=== PATIENT | female | born 1980 | race Caucasian/White ===

== ENCOUNTER 2017-03-15 14:41 | Emergency (ER) | payer SELFPAY ==
--- NOTE | 2017-03-15 15:50 | ED Physician Documentation ---
PD HPI HEENT - Stated complaint Stated Complaint: TOOTH PX - Chief complaint Chief Complaint: Heent - History obtained from History obtained from: Patient - History of Present Illness Timing - onset: Other (1 day of dental pain from a right maxillary canine, no dentist right now. No fevers. Has taken Motrin with relief.) Review of Systems Constitutional: denies: Fever, Chills Throat: reports: Dental pain / toothache. 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, Other - Present Medications Home Medications: Ambulatory Orders Medication Instructions Recorded Confirmed Methadone 80 mg PO DAILY 09/03/12 09/03/12 Ibuprofen [Motrin] 800 mg PO Q8H PRN #30 tablet 03/15/17 Penicillin V Potassium 500 mg PO QID #40 tablet 03/15/17 - Allergies Allergies/Adverse Reactions: Allergies Allergy/AdvReac Type Severity Reaction Status Date / Time latex Allergy Mild Rash Verified 03/15/17 14:52 Penicillins Allergy Mild irregular Verified 03/15/17 14:52 heart beat - Social History Does the pt smoke?: Yes Smoking Status: Current every day smoker Does the pt drink ETOH?: No Does the pt have substance abuse?: Yes - Immunizations Immunizations are current?: Yes - POLST Patient has POLST: No PD ED PE NORMAL - Vitals Vital signs reviewed: Yes - General General: Alert and oriented X 3, No acute distress - HEENT HEENT: Other (Cavity down to the gumline from right maxillary canine with tenderness but no fluctuance, no abscess, no trismus.) - Neck Neck: Supple, no meningeal sign, No bony TTP - Neuro Neuro: Alert and oriented X 3, Normal speech Results - Vitals Vitals: Vital Signs - 24 hr 03/15/17 14:49 Temperature 36.4 C L Heart Rate 99 Respiratory 17 Rate Blood Pressure 153/95 H O2 Saturation 98 Oxygen O2 Source Room air PD MEDICAL DECISION MAKING - ED course ED course: 36-year-old woman with history of narcotic addiction on methadone presents with dental pain. Also documented allergy to penicillins. We discussed both of these, she does not want any narcotics here. She also wants to try penicillin, we discussed potentially clindamycin but she is paying out of pocket and her allergy was mild. Departure - Departure Disposition: 01 Home, Self Care Clinical Impression: Dental abscess Condition: Good Record reviewed to determine appropriate education?: Yes Instructions: ED Abscess Dental Prescriptions: Ibuprofen [Motrin] 800 mg PO Q8H PRN #30 tablet PRN Reason: PAIN &/OR FEVER Penicillin V Potassium 500 mg PO QID #40 tablet Comments: It is very important that she follow-up with a dentist. When it comes to dental problems like yours, the emergency department can only offer a short- term solution to your long-term problem. A couple of low cost options for dental care include: [facility] in [place], calls [phone] for an appointment Or [facility] in [place], call [phone] for an appointment. Your blood pressure was elevated today on check into the emergency department. This does not mean that you have hypertension, it is a common phenomenon to come to the emergency department and have elevated blood pressure. I recommend that you see your primary care physician within the week to have it rechecked when you are feeling better. Forms: Activity restrictions
[2017-03-15 15:56] VITALS: BP 141/95
== END 2017-03-15 15:57 | disposition home or self-care (01) ==
LOC: ED 14:41
DX: K04.7 Periapical abscess without sinus (principal); R03.0 Elevated blood-pressure reading, without diagnosis of hypertension; B19.20 Unspecified viral hepatitis C without hepatic coma; F17.200 Nicotine dependence, unspecified, uncomplicated; Z88.0 Allergy status to penicillin
CPT/HCPCS: 99283

== ENCOUNTER 2017-07-14 18:26 | Emergency (ER) | payer OTHER ==
[2017-07-14] MEDS ORDERED: predniSONE 20 MG TABLET PO STA (19:05)
[2017-07-14] MEDS ORDERED: IPRATROPIUM/ALBUTEROL 3 ML NEB INH STA (19:05)
[2017-07-14] MEDS ORDERED: KETOROLAC 60 MG/2 ML VIAL IM STA (19:05)
--- NOTE | 2017-07-14 19:07 | ED Physician Documentation ---
PD HPI URI - Stated complaint Stated Complaint: COUGH - Chief complaint Chief Complaint: Resp - History obtained from History obtained from: Patient - History of Present Illness Timing - onset: How many days ago (3) Timing duration: Days (3) Timing details: Gradual onset Pain level max: 6 Pain level now: 5 Associated symptoms: Fever (subjective), Nasal congestion, Rhinorrhea, Dry cough , Chest pain (Patient states that her anterior chest wall hurts when she is coughing and taking a deep breath.), Dyspnea (wheezing). 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 - Present Medications Home Medications: Ambulatory Orders Medication Instructions Recorded Confirmed Methadone 80 mg PO DAILY 09/03/12 09/03/12 Albuterol Sulf [Ventolin Hfa 1 - 2 puffs INH Q4HR PRN #1 inhaler 07/14/17 Inhaler] Benzonatate [Tessalon Perle] 100 - 200 mg PO TID PRN #30 capsule 07/14/17 Meloxicam [Mobic] 15 mg PO DAILY PRN #20 tablet 07/14/17 predniSONE [Prednisone] 40 mg PO DAILY #10 tablet 07/14/17 - Allergies Allergies/Adverse Reactions: Allergies Allergy/AdvReac Type Severity Reaction Status Date / Time latex Allergy Mild Rash Verified 07/14/17 18:30 Penicillins Allergy Mild irregular Verified 07/14/17 18:30 heart beat - Social History Does the pt smoke?: Yes Smoking Status: Current every day smoker Does the pt drink ETOH?: No Does the pt have substance abuse?: Yes - Immunizations Immunizations are current?: Yes - POLST Patient has POLST: No PD ED PE NORMAL - Vitals Vital signs reviewed: Yes - General General: Alert and oriented X 3, No acute distress, Well developed/nourished - HEENT HEENT: PERRL, Ears normal, Moist mucous membranes, Pharynx benign - Neck Neck: Supple, no meningeal sign - Cardiac Cardiac: RRR, Strong equal pulses - Respiratory Respiratory: No respiratory distress, Other (Mild wheezing bilaterally) - Abdomen Abdomen: Soft, Non tender, Non distended - Back Back: No spinal TTP - Derm Derm: Warm and dry - Extremities Extremities: No edema, No calf tenderness / cord - Neuro Neuro: Alert and oriented X 3 - Psych Psych: Normal mood, Normal affect Results - Vitals Vitals: Vital Signs - 24 hr 07/14/17 07/14/17 07/14/17 18:27 19:40 20:12 Temperature 36.9 C 36.4 C L Heart Rate 116 H 106 H 97 Respiratory 20 22 12 Rate Blood Pressure 149/102 H 158/90 H O2 Saturation 97 98 Oxygen O2 Source Room air - Rads (name of study) cxr Radiology: Prelim report reviewed, EMP read contemporaneously, See rad report ( No acute cardiopulmonary abnormality. ) PD MEDICAL DECISION MAKING - ED course Complexity details: reviewed results, re-evaluated patient, considered differential, d/w patient ED course: Patient is a 36-year-old female who presents to the emergency department what appears to be a viral upper respiratory infection. She is well-appearing, nontoxic. Feels better after Toradol. She is on methadone for chronic pain. Will prescribe steroids and inhaler, antitussives and pain medication for home. Patient counseled regarding signs and symptoms for which I believe and urgent re-evaluation would be necessary. Patient with good understanding of and agreement to plan and is comfortable going home at this time This document was made in part using voice recognition software. While efforts are made to proofread this document, sound alike and grammatical errors may occur. No evidence of pneumonia, pulmonary embolus, pneumothorax. Departure - Departure Disposition: 01 Home, Self Care Clinical Impression: Viral URI Condition: Good Instructions: ED Viral Syndrome Follow-Up: your,doctor in 1 week [Other] Prescriptions: Albuterol Sulf [Ventolin Hfa Inhaler] 1 - 2 puffs INH Q4HR PRN #1 inhaler PRN Reason: Shortness Of Air/Wheezing Benzonatate [Tessalon Perle] 100 - 200 mg PO TID PRN #30 capsule PRN Reason: Cough Meloxicam [Mobic] 15 mg PO DAILY PRN #20 tablet PRN Reason: pain predniSONE [Prednisone] 40 mg PO DAILY #10 tablet Comments: Drink plenty of fluids and rest. Return if you worsen. Forms: Activity restrictions Discharge Date/Time: 07/14/17 20:09
--- NOTE | 2017-07-14 19:42 | XRAY Report ---
EXAM: CHEST RADIOGRAPHY EXAM DATE: 07/14/2017 07:21 PM. CLINICAL HISTORY: Cough, fever. COMPARISON: 01/26/2016. TECHNIQUE: 2 views. FINDINGS: Lungs/Pleura: No focal opacities evident. No pleural effusion. No pneumothorax. Normal volumes. Mediastinum: Heart and mediastinal contours are unremarkable. Other: None. IMPRESSION: No acute cardiopulmonary abnormality. [facility] Referring Provider Line: [phone] SITE ID: [id number]
--- NOTE | 2017-07-14 19:42 | XRAY Preliminary Report ---
Exam: XR CHEST 2 VIEW X-RAY IMPRESSION: No acute cardiopulmonary abnormality. [facility] SITE ID: [id number]
[2017-07-14 20:13] VITALS: BP 158/90
== END 2017-07-14 20:09 | disposition home or self-care (01) ==
LOC: ED 18:26
DX: J06.9 Acute upper respiratory infection, unspecified (principal); B97.89 Other viral agents as the cause of diseases classified elsewhere; K75.9 Inflammatory liver disease, unspecified; F17.200 Nicotine dependence, unspecified, uncomplicated
CPT/HCPCS: 71046; 94640; 96372; 99283; J7512

== ENCOUNTER 2017-09-11 08:30 | Outpatient (CLI) | payer OTHER ==
--- NOTE | 2017-09-11 10:26 | Ultrasound Report ---
Procedure Date: 09/11/2017 Accession Number: [id number] / [id number] Procedure: US - Pelvic w/Transvaginal CPT Code: FULL RESULT: EXAM: Pelvic w/Transvaginal DATE: 09/11/2017 9:49 AM CLINICAL HISTORY: DISPLACEMENT OF INTRAUTERINE CONTRACEPTIVE DEVICE, COMPARISON: None. TECHNIQUE: Realtime transabdominal imaging performed to identify the uterus and adnexa and as an overview of other pelvic structures, followed by transvaginal imaging for better assessment of the endometrium and/or adnexa, with static image documentation. FINDINGS: Uterus: 7.2 x 5.3 x 3.4 cm, volume 68 cc. Anteverted position. Normal overall size and echotexture. Masses: None. Endometrium: 3 mm. An IUD is noted in the endometrial canal. Cervix: Unremarkable. Right Ovary/Adnexa: 3.3 x 2.1 x 1.9 cm, volume 7 cc. Normal echotexture. Blood flow is present. No adnexal mass is seen. Left Ovary/Adnexa: 2.9 x 2.7 x 1.5 cm, volume 6 cc. Normal echotexture. Blood flow is present. No adnexal mass is seen. Free Fluid: None. Other: None. IMPRESSION: IUD in the endometrial canal. Normal pelvic ultrasound. [facility]
== END 2017-09-11 08:31 | disposition home or self-care (01) ==
LOC: DI 08:30
PROVIDERS: ATTEND Nurse Practitioner Obstetrics & Gynecology
DX: T83.32XA Displacement of intrauterine contraceptive device, initial encounter (principal)
CPT/HCPCS: 76830; 76856

== ENCOUNTER 2017-12-22 12:07 | Emergency (ER) | payer OTHER ==
--- NOTE | 2017-12-22 12:38 | ED Physician Documentation ---
PD HPI FEMALE - Stated complaint Stated Complaint: FEMALE - Chief complaint Chief Complaint: Abd Pain - History obtained from History obtained from: Patient, Family - History of Present Illness Timing - onset: Today Timing - duration: Hours Timing - details: Abrupt onset, Still present Associated symptoms: Pelvic pain Contributing factors: IUD Similar symptoms before: Has not had sx before Recently seen: Not recently seen - Additional information Additional information: 36-year-old female who was previously seen for wanting to have her IUD taken out has developed now acute pelvic pain this morning. She states that she went into see the [facility] C[facility] DIRECT[facility] doctor about 2 months ago and they were not able to find the string to the IUD and the exam was extremely painful. She states the following that she got an ultrasound done and she has not gone back for the results of that. She was well until this morning. She denies any concern of STD. 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, Other - Present Medications Home Medications: Ambulatory Orders Medication Instructions Recorded Confirmed RX: Methadone 80 mg PO DAILY 09/03/12 09/03/12 - Allergies Allergies/Adverse Reactions: Allergies Allergy/AdvReac Type Severity Reaction Status Date / Time latex Allergy Mild Rash Verified 07/14/17 18:30 Penicillins Allergy Mild irregular Verified 07/14/17 18:30 heart beat - Social History Does the pt smoke?: Yes Smoking Status: Current every day smoker Does the pt drink ETOH?: No Does the pt have substance abuse?: Yes - Immunizations Immunizations are current?: Yes - POLST Patient has POLST: No PD ED PE NORMAL - Vitals Vital signs reviewed: Yes (hypertensive ) - General General: Alert and oriented X 3, Well developed/nourished, Other (harmonica maker tone and flat affect consistent with acute pain ) - HEENT HEENT: Atraumatic, PERRL, EOMI - Neck Neck: Supple, no meningeal sign - Cardiac Cardiac: RRR, No murmur - Respiratory Respiratory: No respiratory distress - Abdomen Abdomen: Soft, Other (suprapubic tenderness without garding. ) Results - Vitals Vitals: Vital Signs - 24 hr 12/22/17 12:13 Temperature 36.6 C Heart Rate 97 Respiratory 20 Rate Blood Pressure 151/83 H O2 Saturation 98 Oxygen O2 Source Room air PD MEDICAL DECISION MAKING - ED course Complexity details: reviewed results, re-evaluated patient, considered differential, d/w patient, d/w family ED course: This 36 y/o female has pelvic pain and wants her IUD removed. Dr. Lloyd is consulted in the case and graciously comes to the ED and evaluates the patient. She has her IUD in place and the string is not visible. She will need to have this removed in the OR and she declines to have this done now and will follow up with [facility] this week. On exam she did not have mucopurulent cervicitis. - Sepsis Event Vital Signs: Vital Signs - 24 hr 12/22/17 12:13 Temperature 36.6 C Heart Rate 97 Respiratory 20 Rate Blood Pressure 151/83 H O2 Saturation 98 Oxygen O2 Source Room air Departure - Departure Disposition: 01 Home, Self Care Clinical Impression: IUD strings lost Condition: Stable Instructions: Control IUD Follow-Up: [facility] [Provider Group] Discharge Date/Time: 12/22/17 16:03
[2017-12-22] MEDS ORDERED: KETOROLAC 60 MG/2 ML VIAL IM STA (12:44)
[2017-12-22 13:09] LABS: BILIRUBIN,URINE NEGATIVE (NEGATIVE); GLUCOSE, URINE (UA) NEGATIVE (NEGATIVE); KETONES,URINE (UA) NEGATIVE (NEGATIVE); LEUKOCYTE ESTERASE, URINE NEGATIVE (NEGATIVE); NITRITE,URINE NEGATIVE (NEGATIVE); OCCULT BLOOD,URINE NEGATIVE (NEGATIVE); PROTEIN,URINE NEGATIVE (NEGATIVE); UROBILINOGEN,URINE 0.2 (NORMAL) E.U./dL (NORMAL)
[2017-12-22 13:11] LABS: CLARITY,URINE CLEAR (CLEAR); HCG UR QUAL NEGATIVE
[2017-12-22] MEDS ORDERED: LIDOCAINE 2%-EPI 1:100000 20 ML MDV ONE (14:58)
[2017-12-22 15:52] VITALS: BP 149/94
--- NOTE | 2017-12-22 15:55 | PROCEDURE REPORT ---
Hospitalist Procedure Note - Procedure Note Procedure Note: ATTEMPTED IUD REMOVAL 12/22/17 Asked by ER MD to see this patient for IUD removal with a hx of failed IUD removal in clinic. Pt with acute onset of pelvic pain that she is sure is IUD related. Has a mirena placed 4y ago. AVSS, abdomen is nontender, UA is neg, UPT neg. Consented for IUD removal, all questions answered and consent signed. Speculum placed and normal EFG, vagina, and cervix identified. Small amount of blood. No abnormal discharge from vagina or cervix. IUD strings not seen. Cytobrush placed intracervical in an attempt to "twirl" down the IUD strings. This was not effective. [place] placed into the lower 15mm of the endocervix, strings were not encountered and procedure was painful for pt. At that point a single tooth tenaculum was applied to the anterior lip of the cervix. A paracervical block was placed 10cc of 2% lidocaine in divided doses. Patient did tolerate dilation better with this but as soon as the uterine cavity was entered she had pain again. Cervix dilated with an os-finder. [place] placed intrauterine with blind attempt to grab string or device. This failed x4 attempts. Patient did not want me to proceed any further due to pain. Transvag US done by me at the bedside and revealed a well-placed IUD. I recommended IV sedation here for continued attempts at removal. I feel like office-based removal is possible but pt declined to let me continue due to her pain. Also discussed that she could go to the OR for removal. She chooses OR removal and she absolutely declines any further attempts at removal without being in the OR. She relates hx of addiction, on methadone, and that "no amount of medication can touch me". She does not have yudy that she will get comfortable enough with IV sedation. Has received toradol which helped with pain control. Reviwed option of using benzos for sedation and she declines. Patient has no evidence of a severe current intraabdominal process. AVSS, abd soft, UA neg, UPT neg, no purulent discharge on exam. GC/CT and wet mount sent. Patient was advised to call the clinic on Sunday for an appointment. She was told that the earliest she would probably go to the OR would be [place]. She will return to ER PRN increasing pain, fevers, or purulent discharge. I wanted to give her doxycycline 100mg bid for 3 days for PID prophylaxis as she is not a low-risk patient. She declines antibiotics.
== END 2017-12-22 16:03 | disposition home or self-care (01) ==
LOC: ED 12:07
DX: T83.32XA Displacement of intrauterine contraceptive device, initial encounter (principal); F17.200 Nicotine dependence, unspecified, uncomplicated
CPT/HCPCS: 81001; 81003; 81025; 87086; 96372; 99283

== ENCOUNTER 2017-12-25 08:00 | Outpatient (CLI) | payer OTHER | END 2017-12-25 08:01 | disposition home or self-care (01) | LOC: LAB.R 08:00 | PROVIDERS: ATTEND Obstetrics & Gynecology | DX: Z11.3 Encounter for screening for infections with a predominantly sexual mode of transmission (principal) | CPT/HCPCS: 87491; 87591 ==

== ENCOUNTER 2018-02-25 14:15 | Outpatient (CLI) | payer OTHER ==
[2018-02-25 14:48] LABS: BASOPHILS % (AUTO) 0.2 %; EOSINOPHILS # (AUTO) 0.1 10^3/uL (0.0-0.7); EOSINOPHILS % (AUTO) 1.1 %; HGB - HEMOGLOBIN 14.7 g/dL (12.0-16.0); LYMPHOCYTES # (AUTO) 2.6 10^3/uL (1.5-3.5); LYMPHOCYTES % (AUTO) 33.9 %; MEAN CORPUSCULAR HEMOGLOBIN 31.7 pg (27.0-31.0); MEAN CORPUSCULAR HGB CONC 34.6 g/dL (32.0-36.0); MEAN CORPUSCULAR VOLUME 91.8 fL (81.0-99.0); MEAN PLATELET VOLUME 6.8 fL (7.9-10.8); MONOCYTES # (AUTO) 0.6 10^3/uL (0.0-1.0); MONOCYTES % (AUTO) 7.3 %; NEUTROPHILS # (AUTO) 4.4 10^3/uL (1.5-6.6); NEUTROPHILS % (AUTO) 57.5 %; PLT - PLATELET COUNT 244 10^3/uL (130-450); RED BLOOD COUNT 4.63 10^6/uL (4.20-5.40); RED CELL DISTRIBUTION WIDTH 13.2 % (12.0-15.0); WHITE BLOOD COUNT 7.7 x10^3/uL (4.8-10.8)
[2018-02-25 14:51] LABS: BILIRUBIN,URINE NEGATIVE (NEGATIVE); GLUCOSE, URINE (UA) NEGATIVE (NEGATIVE); KETONES,URINE (UA) NEGATIVE (NEGATIVE); LEUKOCYTE ESTERASE, URINE NEGATIVE (NEGATIVE); NITRITE,URINE NEGATIVE (NEGATIVE); OCCULT BLOOD,URINE MODERATE (NEGATIVE); PH,URINE 6.5 PH (5.0-7.5); PROTEIN,URINE NEGATIVE (NEGATIVE); UROBILINOGEN,URINE 0.2 (NORMAL) E.U./dL (NORMAL)
[2018-02-25 14:55] LABS: CLARITY,URINE CLEAR (CLEAR); HCG UR QUAL NEGATIVE
[2018-02-25 16:08] LABS: CALCIUM 8.9 mg/dL (8.5-10.3); CREATININE 0.7 mg/dL (0.4-1.0)
== END 2018-02-25 14:16 | disposition home or self-care (01) ==
LOC: LAB 14:15
PROVIDERS: ATTEND Obstetrics & Gynecology
DX: Z01.812 Encounter for preprocedural laboratory examination (principal); R10.2 Pelvic and perineal pain; R10.31 Right lower quadrant pain
CPT/HCPCS: 36415; 80048; 81003; 81025; 85025

== ENCOUNTER 2018-02-27 10:31 | Day surgery (SDC) | payer OTHER ==
--- NOTE | 2018-02-25 11:24 | PREOP HISTORY & PHYSICAL ---
DATE OF SERVICE: 02/27/2018 Physician: Ike Rios MD DATE TBD-02/27/18 DIAGNOSIS: Lost Intrauterine Device (IUD): Desires removal. Right lower quadrant pain and pelvic pain Hepatitis C Methadone patient INTENDED PROCEDURE: Hysteroscopic removal of IUD; Diagnostic laparoscopy. HISTORY OF PRESENT ILLNESS: Patient is a 36-year-old 4, para 1-0-3-1 woman who had had attempted an IUD removal in the office with Ambreen Powell (08/27/2017) with the second attempt by Dr. Lloyd in the ED. Patient had the IUD placed in 2013, but now desires removal due to Right lower quadrant/pelvic painperceived and side effects of having foreign object in vivo. On examination, strings are not visible. Ambreen Powell attempted removal with an IUD hook that was not well tolerated secondary to pain. Formal ultrasound was obtained that showed an endometrial location without evident erosion or myometrial migration. The patient strongly desires removal and was referred for hysteroscopic removal of IUD. Her Pap smear is normal. Currently she is not sexually active and does not want any alternative contraception. She understands removal of the IUD will potentially allow . Patient reports chronic right lower quadrant pain and mid pelvic pain. The RLQ pain is been present for over 12 months that is punctuated by bouts of unscheduled bleeding. On most days, the right lower quadrant pain is 3/10 but occasionally it increases to 78/10. There is no discomfort with voiding or bowel movements but it makes intercourse very uncomfortable. It is had a negative impact on her daily activities. She has no dysuria, nausea, vomiting diarrhea, constipation or hematuria. 10 years ago, she had a right-sided ectopic that was treated with salphinostomy. She is uncertain whether she wants further children but would like that option Dose open. We discussed the risks and benefits of hysteroscopic removal And laparoscopy. She understands that hysteroscopy is a surgical procedure, though minor, carries certain risks (bleeding, transfusion, infection, perforation of the uterus, and fluid overload). She acknowledges this and accepts these risks. She understands that laparoscopy carries possibility of damage to intestines, bladder and urinary tract as well as air embolism. ACOG brochures given The patient has irregular menstruation and at times has missed menses for up to 3 months. She notes occasional dark blood with clots. Her normal cycle intervals every 28 days and last from 3-5 days. Menarche was at the age of 14. Prior contraception methods include Depo-Provera and OCPs. History of 2001. SAB uncomplicated after D and C 2013, vaginal delivery of living male . Patient desires patch for contraception in the future. PAST MEDICAL HISTORY The patient has a history of Exercise induced asthma which is well controlled. Patient has a history of narcotic use and has successfully stayed abstinent for 10 years. She is a current methadone patient. She has a history of hepatitis C. Treatment history and current viral load unknown. ALLERGIES: NO KNOWN DRUG ALLERGIES. ALLERGIC TO POLLEN, DUST, AND LATEX. MEDICATIONS: Methadone 40 mg . FAMILY HISTORY: No anesthetic reactions, noncontributory. SOCIAL HISTORY: Unmarried, former smoker, smoked for 10 years, has currently quit for 1 year. Does not drink coffee or cola. No diet or exercise plan. REVIEW OF SYSTEMS CONSTITUTIONAL: Negative HEENT: Negative. CARDIOVASCULAR: Negative. RESPIRATORY: Smoker's cough, nonproductive chest x-ray in May 1999 18- GI: Negative. Negative. : See above MUSCULOSKELETAL: Negative. SKIN: Negative. BREAST: Negative. NEUROLOGIC: Negative. PSYCHOLOGIC: Negative. PHYSICAL EXAMINATION General: Well-groomed pleasant demeanor not significantly obese HEENT: Supple. Neck: No thyroid enlargement. Dentition in adequate repair. LUNGS: Occasional wheeze CARDIAC: Regular no murmur no gallop. GI: Nondistended, no organomegaly, right lower and midline tenderness, no rebound : Normal external genitalia, no blood or discharge in the vagina, cervix not inflamed but IUD string not visible, uterus slightly enlarged and nontender, illness and mild tenderness left adnexal mild tenderness MUSCULOSKELETAL: No tenderness, normal range of motion NEUROLOGIC: Grossly intact PSYCHIATRIC: Alert, oriented, increased anxiety LABORATORY DATA: Baseline labs Pending. ASSESSMENT: Patient is a 36-year-old woman who reports right lower quadrant and uterine pain associated with her Mirena IUD. Office retrieval of IUD was not possible. She is a candidate for hysteroscopic removal of IUD. Patient has had chronic right lower quadrant and abdominal pain for over 12 months and is a candidate for investigative/diagnostic laparoscopy. Presurgery, I intend to use Cytotec intravaginally for ripening. The patient is apprised of the risks and benefits of hysteroscopic IUD removal and and laparoscopy. TD: 02/25/2018 09:15 ROMEO
[2018-02-27] MEDS ORDERED: CELECOXIB 100 MG CAPSULE PO ONE ×2 (12:23→12:44)
[2018-02-27] MEDS ORDERED: PREGABALIN 25 MG CAPSULE PO ONE ×2 (12:24→12:46)
[2018-02-27] MEDS ORDERED: ACETAMINOPHEN 500 MG TABLET PO ONE ×2 (12:25→12:45)
[2018-02-27] MEDS ORDERED: ACETAMINOPHEN 325 MG TABLET PO ONE (12:42)
[2018-02-27] MEDS ORDERED: LACTATED RINGERS 1,000 ML IV ONE ×3 (12:50→16:36)
--- NOTE | 2018-02-27 13:52 | ANESTHESIA ---
Pre-Anesthesia VS, & Labs - Diagnosis Pelvic pain, right lower quadrant pain, displaced IUD - Procedure hysterscopy, D&C, replace IUD, diagnostic laparoscopy Vital Signs: Temp Pulse Resp BP Pulse Ox 36.8 C 88 20 120/78 99 02/27/18 12:10 02/27/18 12:10 02/27/18 12:10 02/27/18 12:10 02/27/18 12:10 Height 5 ft 4 in Weight (kg) 76 kg Body Mass Index 30.1 - NPO >8 hours - Is Patient ?: No - Lab Results Lab results reviewed: Yes Home Medications and Allergies Methadone 76 mg PO DAILY 09/03/12 Allergies/Adverse Reactions: Allergies Allergy/AdvReac Type Severity Reaction Status Date / Time latex Allergy Mild Rash Verified 02/25/18 14:16 Penicillins Allergy Mild irregular Verified 02/25/18 14:16 heart beat cephalexin [From Keflex] Allergy Rash Verified 02/25/18 14:16 Anes History & Medical History - Anesthetic History Anesthesia Complications: reports: No previous complications - Medical History Cardiovascular: reports: None Pulmonary: reports: None Gastrointestinal: reports: GERD (occasional), Hepatitis (Hep C+) Urinary: reports: None Neuro: reports: None Musculoskeletal: reports: None Endocrine/Autoimmune: reports: None Blood Disorders: reports: None Skin: reports: None Smoking Status: Current every day smoker (1pk/day) Psychosocial: reports: Opioid (chronic opioid use.) - Surgical History Gynecologic: Dilation and currettage, Other Exam General: Alert, Oriented x3, Cooperative, No acute distress Dental: Poor dentition Mouth Openin Fingerbreadth Neck Mobility: Normal Mallampati classification: I Thyromental Distance: 4-6 cm Respiratory: Lungs clear, Normal breath sounds, No respiratory distress, No accessory muscle use Cardiovascular: Regular rate, Normal S1, Normal S2, No murmurs Mental/Cognitive Status: Alert/Oriented X3, Normal for patient Plan Anesthesia Type: General Consent for Procedure(s) Verified and Reviewed: Yes Code Status: Attempt Resuscitation ASA classification: 2-Mild systemic disease Is this case an emergency?: No
--- NOTE | 2018-02-27 14:55 | OPERATIVE REPORT ---
Operative Report - General Planned Procedure: Hysteroscopic IUD retrieval; laparoscopy Pre-Op Diagnosis: Lost IUD; right lower quadrant and pelvic pain; hep C; methadone patient Procedure Performed: Hysteroscopy with hysteroscopic retrieval of IUD; Endometrial sample/biopsy; Diagnostic Laparoscopy with Lysis of Adhesions Post Op Diagnosis: IUD retrieved; left colonic adhesions; await pathology - Procedure Note Primary Surgeon: Ike Rios MD, FACOG, FICS Anesthesia Provider: Richard Garcia, certified nurse [employer] layup line back feeder Anesthesia Technique: General ET tube Pathology: IUD and will sample IV Fluids (mL): 1,000 Estimated Blood Loss (mL): 10 Urine Output (mL): 100 (Patient straight cath prior to procedure yielding clear urine) Drain/Tube Type: Other (None) Complications: None. - Other Other Information/Narrative: Prior to entering the OR, I met the patient and family in the preoperative holding room. We reviewed her informed consent. Our discussion included occasions, mechanics of the procedures, intended benefits, risks /possible complications and alternatives. She is aware of the possibility of blood loss, transfusion, wound infection, damage to bowel, damage to bladder or urinary tract and postoperative pain. She understands that surgery may not remedy all of her problems and over time prolapse could develop. All questions were reviewed and answered. Informed consent paperwork was signed. Patient's medical history and intended procedure was reviewed with anesthesiology and OR staff. A cocktail of preop analgesics was planned was given: Lyrica, Tylenol and Celebrex. Patient was brought to the OR and placed on the table in the supine position. She was uneventfully induced and intubated. She was then moved to the low dorsal lithotomy position on [facility] stirrups. She was prepped and draped in the customary sterile fashion. Timeout briefing was done per protocol. Hysteroscopy Exam under anesthesia was performed. The [place] of the uterus was determined. A medium size Graves speculum was inserted into the vagina and the cervix was well-visualized. Single-tooth tenaculum was applied to the anterior cervical lip. The cervical the cervical axis was determined with fine Hegar probe. The endocervical canal was then gently dilated with serial application of Hegar probes to size 6. The video hysteroscope was calibrated and white balanced. The safety pump was primed and zeroed. The hysteroscope was then gently guided through the endocervical canal and into the uterine cavity. Fluid irrigation through the hysteroscope provided clear visualization during the insertion process. The UpCloo safety hysteroscopy pump was used throughout the process maintaining a pressure of XX. Once inside of the uterus cavity a systematic examination was done. Reference findings section and attached photos. Laparoscopy A HUMI uterine manipulator was uneventfully inserted into the endometrial cavity. After injection of Marcaine quarter percent with epinephrine local, a small incision was placed under the umbilical skin fold. A 5 mm Visiport trocar was introduced through the incision and into the abdomen under direct visualization. The abdomen was insufflated with CO2 gas at 12 mm of pressure. Atraumatic entry was confirmed. A 5 mm trocars were uneventfully inserted into the left and right lower quadrant under direct visualization. Patient was placed in deeper Trendelenburg and the abdominal and pelvic contents were assessed. Reference findings section and photos. The colonic adhesions were uneventfully lysed with [place] grasper style LigaSure. After the objectives were met the laparoscopy was concluded and the trocar sleeves uneventfully withdrawn from the Abdominal cavity. We confirmed that there was no hemorrhage. At this point we confirmed to that sponge needle and instrument count was correct. Total fluid deficit for the procedure = 110cc. 1. The external exam genitalia were examined and no concerning lesions were discovered. There was no evidence of genital trauma. The hiatus was 4.5 centimeters in diameter. The clitoris was of normal size. The distribution of pubic hair was normal. The urethra was was had a appropriate angle and of normal caliber. 2. Examination of the vagina found a normal rugated mucosa without evidence of lesions. There was no blood or discharge evident. Note the vagina had been prepped prior to examination. Grade 1 cystorectocele was found. 3. Cervix was without significant cervicitis or visible plaques/lesions. There was no paracervical fullness. 4. Uterus was anteverted anteflexed and normal size without evidence of . The contour the uterus was smooth and not suggestive of fibroids. 5. Ovaries were of normal size and mobile. 6. Rectal vaginal exam was not accomplished. 7. Evaluation of abdominal viscera found the liver to be diffusely scarred. Reference photos. There was a dense adhesion between the rectal colon and left pelvic sidewall that extended up to above the pelvic brim. The appendix was normal in appearance.
[2018-02-27] MEDS ORDERED: BUPIVACAINE 0.25%-EPI 1:200000 PF 30 ML VIAL ONE (15:25)
[2018-02-27] MEDS ORDERED: BUPIVACAINE 0.25%-EPI 1:200000 PF 10 ML VIAL SUBQ ONE (15:47)
[2018-02-27] MEDS ORDERED: SUGAMMADEX 200 MG/2 ML VIAL IVP ONE (16:00)
[2018-02-27] MEDS ORDERED: LIDOCAINE-MPF 2% 5 ML VIAL IM ONE (16:25)
[2018-02-27] MEDS ORDERED: DEXAMETHASONE 4 MG/ML VIAL IVP ONE (16:25)
[2018-02-27] MEDS ORDERED: PROPOFOL 200 MG/20 ML VIAL IVP ONE (16:25)
[2018-02-27] MEDS ORDERED: ROCURONIUM 50 MG/5 ML VIAL IVP ONE (16:25)
[2018-02-27] MEDS ORDERED: ONDANSETRON 4 MG/2 ML VIAL IVP ONE (16:25)
[2018-02-27] MEDS ORDERED: fentaNYL 100 MCG/2 ML VIAL IVP ONE (16:25)
[2018-02-27] MEDS ORDERED: KETAMINE 500 MG/10 ML VIAL IVP ONE (16:25)
[2018-02-27] MEDS ORDERED: MIDAZOLAM 2 MG/2 ML VIAL IVP ONE (16:25)
[2018-02-27] MEDS: fentaNYL 100 MCG/2 ML VIAL ONE ×3 (16:45→16:59)
[2018-02-27] MEDS ORDERED: ONDANSETRON 4 MG/2 ML VIAL IVP PRN (17:03)
--- NOTE | 2018-02-27 17:07 | PROVIDER PROGRESS NOTE ---
Subjective - Prog Note Date Prog Note Date: 02/27/18 Prog Note Time: 17:00 - Subjective Pt reports feeling: Improved Subjective: Patient underwent a uneventful hysteroscopy and laparoscopy earlier today. She is taking liquid nutrition well. She has demonstrated the ability to avoid. She is a candidate for discharge. She remains drowsy from intraoperative ketamine. Her vital signs are stable. We reviewed warning sign and callback instructions. She is to see us in 2 weeks for reevaluation. Discharge medications Motrin 800 p.o. every 8 hours for 7 days Objective - Vital Signs/Intake & Output Vital Signs: Vital Signs x48h Temp Pulse Resp BP Pulse Ox 02/27/18 17:02 81 15 153/86 H 97 02/27/18 16:52 79 22 137/87 H 100 02/27/18 16:49 80 21 131/77 H 97 02/27/18 16:45 97.9 F 79 13 126/71 98 02/27/18 16:38 85 22 145/87 H 99 02/27/18 16:29 78 23 123/77 100 02/27/18 16:22 81 23 142/85 H 100 02/27/18 16:18 98.2 F 79 20 143/94 H 100 02/27/18 12:10 98.2 F 88 20 120/78 99 Intake & Output: Intake & Output 02/24/18 02/25/18 02/26/18 02/27/18 23:59 23:59 23:59 23:59 Intake Total 2000 Output Total 110 Balance 1890
[2018-02-27] MEDS ORDERED: IBUPROFEN 600 MG TABLET PO SCH (18:00)
[2018-02-27 18:04] VITALS: BP 121/84
[2018-02-28] MEDS ORDERED: DOCUSATE SODIUM 250 MG CAPSULE PO SCH (09:00)
[2018-02-28] MEDS ORDERED: LACTULOSE 10 GM /15 ML UDC PO SCH (09:00)
== END 2018-02-27 10:32 | disposition home or self-care (01) ==
LOC: SDS 10:31
PROVIDERS: ATTEND Obstetrics & Gynecology
PROC: 0UDB8ZX Extraction of Endometrium, Via Natural or Artificial Opening Endoscopic, Diagnostic (ICD-10-PCS; 2018-02-27)
PROC: 0DNP4ZZ Release Rectum, Percutaneous Endoscopic Approach (ICD-10-PCS; principal; 2018-02-27 10:00)
PROC: 0UC98ZZ Extirpation of Matter from Uterus, Via Natural or Artificial Opening Endoscopic (ICD-10-PCS; 2018-02-27 10:00)
DX: T83.32XA Displacement of intrauterine contraceptive device, initial encounter (principal); Y83.1 Surgical operation with implant of artificial internal device as the cause of abnormal reaction of the patient, or of later complication, without mention of misadventure at the time of the procedure; N73.6 Female pelvic peritoneal adhesions (postinfective); G89.29 Other chronic pain; K21.9 Gastro-esophageal reflux disease without esophagitis; B19.20 Unspecified viral hepatitis C without hepatic coma; J45.990 Exercise induced bronchospasm; Z79.891 Long term (current) use of opiate analgesic; Z87.891 Personal history of nicotine dependence
CPT/HCPCS: 44180; 58562; A9270; J7120

== ENCOUNTER 2018-03-09 12:58 | Emergency (ER) | payer OTHER ==
[2018-03-09 13:04] VITALS: BP 134/85
--- NOTE | 2018-03-09 13:18 | ED Physician Documentation ---
PD HPI FEMALE - Stated complaint Stated Complaint: FEMALE - Chief complaint Chief Complaint: Abd Pain - History obtained from History obtained from: Patient - History of Present Illness Timing - onset: How many days ago (several) Timing - duration: Days Timing - details: Gradual onset Pain level max: 6 Pain level max: 5 Associated symptoms: Vaginal pain (itching, burning), Vaginal discharge (white). No: Fever, Vaginal bleeding Contributing factors: No: , Tubal ligation, Hysterectomy, Exposed to STD Similar symptoms before: Has not had sx before Recently seen: Surgery (Hysteroscopy for IUD retrieval. 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, Other - Present Medications Home Medications: Ambulatory Orders Medication Instructions Recorded Confirmed Methadone 76 mg PO DAILY 09/03/12 02/27/18 Metronidazole [Flagyl] 500 mg PO BID #14 tablet 03/09/18 - Allergies Allergies/Adverse Reactions: Allergies Allergy/AdvReac Type Severity Reaction Status Date / Time latex Allergy Mild Rash Verified 02/25/18 14:16 Penicillins Allergy Mild irregular Verified 02/25/18 14:16 heart beat cephalexin [From Keflex] Allergy Rash Verified 03/09/18 13:04 - Social History Does the pt smoke?: Yes Smoking Status: Current every day smoker (1pk/day) Does the pt drink ETOH?: No Does the pt have substance abuse?: Yes - Immunizations Immunizations are current?: Yes - POLST Patient has POLST: No PD ED PE NORMAL - Vitals Vital signs reviewed: Yes - General General: Alert and oriented X 3, No acute distress - HEENT HEENT: Moist mucous membranes - Cardiac Cardiac: RRR - Respiratory Respiratory: No respiratory distress, Clear bilaterally - Abdomen Abdomen: Soft, Non tender, Non distended - Female Female : Cleaning Crew Member present (Molly RN), Other (External exam reveals a inflamed, erythematous labia bilaterally. appears scaly. Also moderate white discharge inside the vaginal canal with erythema to the coon unable to tolerate manual exam) - Back Back: No CVA TTP - Derm Derm: Warm and dry - Neuro Neuro: Alert and oriented X 3 Results - Vitals Vitals: Vital Signs - 24 hr 03/09/18 13:01 Temperature 36.8 C Heart Rate 79 Respiratory 20 Rate Blood Pressure 134/85 H O2 Saturation 100 Oxygen O2 Source Room air - Labs Labs: Microbiology 03/09/18 13:25 Wet Prep - Final Vaginal Laboratory Tests 03/09/18 13:10 Urine Color YELLOW Urine Clarity CLEAR Urine pH 7.0 Ur Specific [place] 1.015 Urine Protein NEGATIVE Urine Glucose (UA) NEGATIVE Urine Ketones NEGATIVE Urine Occult Blood NEGATIVE Urine Nitrite NEGATIVE Urine Bilirubin NEGATIVE Urine Urobilinogen 0.2 (NORMAL) Ur Leukocyte Esterase NEGATIVE Ur Microscopic Review NOT INDICATED Urine Culture Comments NOT INDICATED Urine HCG, Qual NEGATIVE PD MEDICAL DECISION MAKING - ED course Complexity details: reviewed results, re-evaluated patient, considered differential, d/w patient ED course: 37-year-old female with bacterial vaginitis. Will place on Flagyl. She is well-appearing, nontoxic. Afebrile. We will have her follow-up with her doctor for further evaluation and care. Patient counseled regarding signs and symptoms for which I believe and urgent re-evaluation would be necessary. Patient with good understanding of and agreement to plan and is comfortable going home at this time This document was made in part using voice recognition software. While efforts are made to proofread this document, sound alike and grammatical errors may occur. Departure - Departure Disposition: 01 Home, Self Care Clinical Impression: Bacterial vaginitis Condition: Good Instructions: ED Vaginosis Bacterial Follow-Up: Gricel Fink ARNP [Primary Care Provider] - Within 1 week (if not better) Prescriptions: Metronidazole [Flagyl] 500 mg PO BID #14 tablet Comments: Take all medications until gone. Return if you worsen. Follow-up with your doc tor for further care Discharge Date/Time: 03/09/18 14:10
[2018-03-09 13:26] LABS: HCG UR QUAL NEGATIVE
[2018-03-09 13:31] LABS: BILIRUBIN,URINE NEGATIVE (NEGATIVE); GLUCOSE, URINE (UA) NEGATIVE (NEGATIVE); KETONES,URINE (UA) NEGATIVE (NEGATIVE); LEUKOCYTE ESTERASE, URINE NEGATIVE (NEGATIVE); NITRITE,URINE NEGATIVE (NEGATIVE); OCCULT BLOOD,URINE NEGATIVE (NEGATIVE); PROTEIN,URINE NEGATIVE (NEGATIVE); UROBILINOGEN,URINE 0.2 (NORMAL) E.U./dL (NORMAL)
[2018-03-09 13:33] LABS: CLARITY,URINE CLEAR (CLEAR)
[2018-03-09] MEDS ORDERED: metroNIDAZOLE 250 MG TABLET PO STA (14:03)
== END 2018-03-09 14:10 | disposition home or self-care (01) ==
LOC: ED 12:58
DX: N76.0 Acute vaginitis (principal); F17.200 Nicotine dependence, unspecified, uncomplicated
CPT/HCPCS: 81003; 81025; 87210; 99283; A9270; 81001; 87086

== ENCOUNTER 2018-07-22 20:39 | Emergency (ER) | payer MEDICAID, OTHER ==
[2018-07-22 20:57] LABS: GLUCOSE, URINE (UA) 100 mg/dL (NEGATIVE); KETONES,URINE (UA) 40 mg/dL (NEGATIVE); LEUKOCYTE ESTERASE, URINE NEGATIVE (NEGATIVE); NITRITE,URINE NEGATIVE (NEGATIVE); OCCULT BLOOD,URINE LARGE (NEGATIVE); PH,URINE 6.5 PH (5.0-7.5); PROTEIN,URINE TRACE mg/dL (NEGATIVE); UROBILINOGEN,URINE 0.2 (NORMAL) E.U./dL (NORMAL)
[2018-07-22 21:00] LABS: BASOPHILS % (AUTO) 0.6 %; EOSINOPHILS # (AUTO) 0.1 10^3/uL (0.0-0.7); EOSINOPHILS % (AUTO) 1.6 %; HGB - HEMOGLOBIN 14.2 g/dL (12.0-16.0); LYMPHOCYTES # (AUTO) 2.2 10^3/uL (1.5-3.5); LYMPHOCYTES % (AUTO) 31.7 %; MEAN CORPUSCULAR HGB CONC 34.1 g/dL (32.0-36.0); MEAN PLATELET VOLUME 6.7 fL (7.9-10.8); MONOCYTES # (AUTO) 0.5 10^3/uL (0.0-1.0); MONOCYTES % (AUTO) 7.7 %; NEUTROPHILS # (AUTO) 4.1 10^3/uL (1.5-6.6); NEUTROPHILS % (AUTO) 58.4 %; PLT - PLATELET COUNT 265 10^3/uL (130-450); RED BLOOD COUNT 4.72 10^6/uL (4.20-5.40)
[2018-07-22 21:03] LABS: BILIRUBIN,URINE LARGE (NEGATIVE); CLARITY,URINE HAZY (CLEAR); ICTOTEST,URINE POSITIVE
[2018-07-22 21:10] LABS: HCG UR QUAL NEGATIVE
[2018-07-22 21:18] LABS: BACTERIA,URINE Moderate /HPF (None Seen); RBC,URINE 0-5 /HPF (0-5); SQUAMOUS EPITHELIAL CELL,UR MOD Squamous (<= Few)
--- NOTE | 2018-07-22 21:27 | ED Physician Documentation ---
PD HPI ABD PAIN - Stated complaint Stated Complaint: AB PX - Chief complaint Chief Complaint: Abd Pain - History obtained from History obtained from: Patient - History of Present Illness Timing - onset: How many days ago ("couple of days ago") Timing - details: Abrupt onset, Intermittant Pain level now: 6 Quality: Pain Location: RUQ, Epigastric Radiation: Other (does not radiate) Improved by: Laying still Worsened by: Eating, Moving Associated symptoms: Nausea (minimal). No: Fever, Vomiting, Diarrhea, Constipation Similar symptoms before: Has not had sx before Recently seen: Not recently seen - Additional information Additional information: c/o "couple days" of epigastric, RUQ pain, worse with food. Similar previous episodes controlled with antacids. Review of Systems Constitutional: denies: Fever, Chills, Sweats Cardiac: reports: Reviewed and negative Respiratory: reports: Reviewed and negative GI: reports: Abdominal Pain, Nausea (minimal). 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, Other - Present Medications Home Medications: Ambulatory Orders Medication Instructions Recorded Confirmed Methadone 76 mg PO DAILY 09/03/12 02/27/18 Norelgestromin/Ethin.estradiol 07/22/18 [Xulane Patch] - Allergies Allergies/Adverse Reactions: Allergies Allergy/AdvReac Type Severity Reaction Status Date / Time latex Allergy Mild Rash Verified 02/25/18 14:16 Penicillins Allergy Mild irregular Verified 02/25/18 14:16 heart beat cephalexin [From Keflex] Allergy Rash Verified 03/09/18 13:04 - Social History Does the pt smoke?: Yes Smoking Status: Current every day smoker Does the pt drink ETOH?: Yes Does the pt have substance abuse?: Yes - Immunizations Immunizations are current?: Yes - POLST Patient has POLST: No PD ED PE NORMAL - Vitals Vital signs reviewed: Yes - General General: Alert and oriented X 3, Well developed/nourished, Other (appears uncomfortable) - HEENT HEENT: Other (pasty/tacky mucous membranes) - Cardiac Cardiac: RRR, No murmur - Respiratory Respiratory: No respiratory distress, Clear bilaterally - Abdomen Abdomen: Soft, Non distended, Other (tender to palpation RUQ and epigastric without guarding or rebound) - Back Back: No CVA TTP - Derm Derm: Normal color, Warm and dry, No rash - Extremities Extremities: No edema Results - Vitals Vitals: Vital Signs - 24 hr 07/22/18 07/22/18 07/23/18 20:42 22:16 00:08 Temperature 37.2 C Heart Rate 120 H 110 H 91 Respiratory 18 16 16 Rate Blood Pressure 150/89 H 167/98 H 117/94 H O2 Saturation 100 100 98 07/23/18 01:39 Temperature Heart Rate 81 Respiratory 16 Rate Blood Pressure 188/71 H O2 Saturation 97 Oxygen O2 Source Room air - Labs Labs: Laboratory Tests 07/22/18 07/22/18 07/22/18 20:48 20:48 20:53 WBC 7.0 RBC 4.72 Hgb 14.2 Hct 41.6 MCV 88.0 MCH 30.0 MCHC 34.1 RDW 13.0 Plt Count 265 MPV 6.7 L Neut # (Auto) 4.1 Lymph # (Auto) 2.2 [place] # (Auto) 0.5 Eos # (Auto) 0.1 Baso # (Auto) 0.0 Absolute Nucleated RBC 0.00 Nucleated RBC % 0.0 Sodium Potassium Chloride Carbon Dioxide Anion Gap BUN Creatinine Estimated GFR (MDRD) Glucose Calcium Total Bilirubin AST ALT Alkaline Phosphatase Total Protein Albumin Globulin Albumin/Globulin Ratio Lipase Urine Color DARK YELLOW Urine Clarity HAZY Urine pH 6.5 Ur Specific [place] 1.015 1.015 Urine Protein TRACE Urine Glucose (UA) 100 H Urine Ketones 40 H Urine Occult Blood LARGE H Urine Nitrite NEGATIVE Urine Bilirubin LARGE H Urine Urobilinogen 0.2 (NORMAL) Ur Leukocyte Esterase NEGATIVE Urine RBC 0-5 Urine WBC 0-3 Ur Squamous Epith Cells MOD Squamous H Urine Bacteria Moderate H Ur Microscopic Review INDICATED Urine Culture Comments NOT INDICATED Urine HCG, Qual NEGATIVE 07/22/18 20:53 WBC RBC Hgb Hct MCV MCH MCHC RDW Plt Count MPV Neut # (Auto) Lymph # (Auto) [place] # (Auto) Eos # (Auto) Baso # (Auto) Absolute Nucleated RBC Nucleated RBC % Sodium 136 Potassium 3.2 L Chloride 100 L Carbon Dioxide 23 Anion Gap 13.0 BUN 10 Creatinine 0.6 Estimated GFR (MDRD) 114 Glucose 99 Calcium 8.6 Total Bilirubin 6.4 H AST 80 H ALT 121 H Alkaline Phosphatase 144 H Total Protein 7.4 Albumin 3.8 Globulin 3.6 Albumin/Globulin Ratio 1.1 Lipase 22 Urine Color Urine Clarity Urine pH Ur Specific [place] Urine Protein Urine Glucose (UA) Urine Ketones Urine Occult Blood Urine Nitrite Urine Bilirubin Urine Urobilinogen Ur Leukocyte Esterase Urine RBC Urine WBC Ur Squamous Epith Cells Urine Bacteria Ur Microscopic Review Urine Culture Comments Urine HCG, Qual - Rads (name of study) RUQ US Radiology: Prelim report reviewed, See rad report PD MEDICAL DECISION MAKING - ED course Complexity details: reviewed old records, reviewed results, re-evaluated patient, considered differential, d/w patient ED course: D/W Dr. Euceda, recommends patient have ERCP and can f/u with his office. I discussed this w/ patient; she wants to go home, feels well and does not want to wait for me to contact [facility] to discuss her case. I explained that this might simply involve arranging for expedited f/u, but she again says she feels well enough to go home and wants to arrange f/u herself. I encouraged her to return to the ED at any time she wants to be reevaluated, particularly if worse in any way. I reviewed her blood test results with her, emphasizing the abnormal LFTs. During ED stay, she appeared only mildly uncomfortable at times, and was in NAD prior to discharge. She did not ask for pain medication, and was comfortable with toradol; she reported little, if any, relief with toradol but declined further pain medication. Departure - Departure Disposition: 01 Home, Self Care Clinical Impression: Biliary colic Condition: Good Instructions: ED Gallstone W Biliary Colic Follow-Up: Chavez Euceda MD [Provider Admit Priv/Credential] - (Call this morning to arrange for immediate follow-up) Comments: Please return to the emergency department at any time for reevaluation, particularly if worse in any way Discharge Date/Time: 07/23/18 01:40
[2018-07-22 21:31] LABS: ALBUMIN 3.8 g/dL (3.2-5.5); ALBUMIN/GLOBULIN RATIO 1.1 (1.0-2.2); BILIRUBIN,TOTAL 6.4 mg/dL (0.2-1.0); CALCIUM 8.6 mg/dL (8.5-10.3); CREATININE 0.6 mg/dL (0.4-1.0); TOTAL PROTEIN 7.4 g/dL (6.7-8.2)
[2018-07-22] MEDS ORDERED: SODIUM CHLORIDE 0.9% 1,000 ML IV STA (21:56)
[2018-07-22] MEDS ORDERED: KETOROLAC 30 MG/ML VIAL IVP STA (21:56)
--- NOTE | 2018-07-23 00:05 | Ultrasound Report ---
Reason: abd. pain, abnl. LFTs Procedure Date: 07/22/2018 Accession Number: [id number] / [id number] Procedure: US - Abdomen Limited CPT Code: FULL RESULT: EXAM: ABDOMEN ULTRASOUND LIMITED, RUQ EXAM DATE: 07/22/2018 11:49 PM. CLINICAL HISTORY: Abdominal pain with elevated LFTs. COMPARISON: CT ABD AND PELVIS WITH CONTRAST 05/07/2012 3:19 PM. TECHNIQUE: Real-time scanning was performed with static images obtained. FINDINGS: Liver: Normal in size and echotexture. 17 cm. Main portal vein flow: Hepatopetal. Gallbladder: Numerous gallstones without wall thickening or reported tenderness. Biliary System: CBD measures up to 14 mm. Numerous common bile duct stones present. Other: No right hydronephrosis. Tiny nonobstructing right renal stone again noted. IMPRESSION: 1. Numerous obstructing common bile duct stones present, ERCP should be considered. 2. Cholelithiasis without cholecystitis. RADIA The call report notification system was initiated by Dr. Wenceslao Fitch at 11:59 PM on 07/22/2018. The above call report findings were discussed with Dustin Reyes by Dr. Wenceslao Fitch at 12:02 AM on 07/23/2018.
[2018-07-23 01:40] VITALS: BP 188/71
== END 2018-07-23 01:40 | disposition home or self-care (01) ==
LOC: ED 20:39
DX: K80.51 Calculus of bile duct without cholangitis or cholecystitis with obstruction (principal); K75.9 Inflammatory liver disease, unspecified; F17.200 Nicotine dependence, unspecified, uncomplicated
CPT/HCPCS: 36415; 76705; 80053; 81001; 81003; 81025; 83690; 85025; 87086; 96361; 96374; 99283; 99284

== ENCOUNTER 2018-09-02 14:45 | Outpatient (CLI) | payer MEDICAID | END 2018-09-02 14:46 | disposition home or self-care (01) | LOC: LAB.F 14:45 | PROVIDERS: ATTEND Nurse Practitioner | DX: Z79.899 Other long term (current) drug therapy (principal) ==

== ENCOUNTER 2018-10-01 11:16 | Outpatient (CLI) | payer MEDICAID | END 2018-10-01 11:17 | disposition home or self-care (01) | LOC: LAB.S 11:16 | PROVIDERS: ATTEND Nurse Practitioner | DX: Z79.899 Other long term (current) drug therapy (principal) ==

== ENCOUNTER 2018-10-04 10:48 | Outpatient (CLI) | payer MEDICAID ==
[2018-10-04 11:08] LABS: BASOPHILS % (AUTO) 0.3 %; EOSINOPHILS # (AUTO) 0.2 10^3/uL (0.0-0.7); EOSINOPHILS % (AUTO) 2.1 %; HGB - HEMOGLOBIN 13.6 g/dL (12.0-16.0); LYMPHOCYTES # (AUTO) 2.8 10^3/uL (1.5-3.5); LYMPHOCYTES % (AUTO) 32.6 %; MEAN CORPUSCULAR HEMOGLOBIN 29.9 pg (27.0-31.0); MEAN CORPUSCULAR HGB CONC 33.3 g/dL (32.0-36.0); MEAN CORPUSCULAR VOLUME 89.7 fL (81.0-99.0); MEAN PLATELET VOLUME 8.7 fL (7.9-10.8); MONOCYTES # (AUTO) 0.7 10^3/uL (0.0-1.0); NEUTROPHILS # (AUTO) 4.9 10^3/uL (1.5-6.6); NEUTROPHILS % (AUTO) 56.8 %; PLT - PLATELET COUNT 259 10^3/uL (130-450); RED BLOOD COUNT 4.55 10^6/uL (4.20-5.40); RED CELL DISTRIBUTION WIDTH 12.3 % (12.0-15.0); WHITE BLOOD COUNT 8.7 x10^3/uL (4.8-10.8)
[2018-10-04 11:15] LABS: ALBUMIN 3.7 g/dL (3.2-5.5); BILIRUBIN,TOTAL 0.7 mg/dL (0.2-1.0); CALCIUM 8.9 mg/dL (8.5-10.3); CREATININE 0.7 mg/dL (0.4-1.0); TOTAL PROTEIN 7.3 g/dL (6.7-8.2)
== END 2018-10-04 10:49 | disposition home or self-care (01) ==
LOC: LAB 10:48
PROVIDERS: ATTEND Physician Assistant Medical
DX: Z79.899 Other long term (current) drug therapy (principal)
CPT/HCPCS: 36415; 80053; 81599; 85025; 86480; 86592

== ENCOUNTER 2019-07-28 07:34 | Outpatient (CLI) | payer MEDICAID ==
[2019-07-28 08:04] LABS: BASOPHILS % (AUTO) 0.3 %; EOSINOPHILS # (AUTO) 0.3 10^3/uL (0.0-0.7); EOSINOPHILS % (AUTO) 4.2 %; HGB - HEMOGLOBIN 11.9 g/dL (12.0-16.0); LYMPHOCYTES # (AUTO) 3.2 10^3/uL (1.5-3.5); LYMPHOCYTES % (AUTO) 40.1 %; MEAN CORPUSCULAR HEMOGLOBIN 31.3 pg (27.0-31.0); MEAN CORPUSCULAR HGB CONC 34.8 g/dL (32.0-36.0); MONOCYTES # (AUTO) 0.6 10^3/uL (0.0-1.0); MONOCYTES % (AUTO) 8.1 %; NEUTROPHILS # (AUTO) 3.7 10^3/uL (1.5-6.6); PLT - PLATELET COUNT 210 10^3/uL (130-450); WHITE BLOOD COUNT 7.9 x10^3/uL (4.8-10.8)
[2019-07-28 08:16] LABS: ALBUMIN 3.3 g/dL (3.2-5.5); ALBUMIN/GLOBULIN RATIO 1.1 (1.0-2.2); BILIRUBIN,TOTAL 0.4 mg/dL (0.2-1.0); CALCIUM 8.1 mg/dL (8.5-10.3); CREATININE 0.7 mg/dL (0.4-1.0); TOTAL PROTEIN 6.3 g/dL (6.7-8.2)
== END 2019-07-28 07:35 | disposition home or self-care (01) ==
LOC: LAB 07:34
PROVIDERS: ATTEND Physician Assistant Medical
DX: F19.11 Other psychoactive substance abuse, in remission (principal)
CPT/HCPCS: 36415; 80053; 85025

== ENCOUNTER 2019-12-10 14:09 | Outpatient (CLI) | payer MEDICAID ==
[2019-12-10 20:25] LABS: BASOPHILS % (AUTO) 0.3 %; EOSINOPHILS # (AUTO) 0.2 10^3/uL (0.0-0.7); EOSINOPHILS % (AUTO) 2.3 %; HGB - HEMOGLOBIN 13.8 g/dL (12.0-16.0); LYMPHOCYTES # (AUTO) 2.3 10^3/uL (1.5-3.5); MEAN CORPUSCULAR HEMOGLOBIN 30.3 pg (27.0-31.0); MEAN CORPUSCULAR HGB CONC 33.2 g/dL (32.0-36.0); MEAN CORPUSCULAR VOLUME 91.2 fL (81.0-99.0); MEAN PLATELET VOLUME 10.1 fL (7.9-10.8); MONOCYTES # (AUTO) 0.5 10^3/uL (0.0-1.0); MONOCYTES % (AUTO) 8.1 %; NEUTROPHILS # (AUTO) 3.5 10^3/uL (1.5-6.6); NEUTROPHILS % (AUTO) 54.1 %; PLT - PLATELET COUNT 246 10^3/uL (130-450); RED BLOOD COUNT 4.56 10^6/uL (4.20-5.40); RED CELL DISTRIBUTION WIDTH 12.8 % (12.0-15.0); WHITE BLOOD COUNT 6.4 x10^3/uL (4.8-10.8)
[2019-12-10 20:35] LABS: ALBUMIN 4.3 g/dL (3.2-5.5); ALBUMIN/GLOBULIN RATIO 1.5 (1.0-2.2); BILIRUBIN,TOTAL 1.5 mg/dL (0.2-1.0); CALCIUM 9.5 mg/dL (8.5-10.3); CREATININE 0.7 mg/dL (0.4-1.0); TOTAL PROTEIN 7.2 g/dL (6.7-8.2)
[2019-12-12 11:51] LABS: HEPATITIS C ANTIBODY REACTIVE (NON-REACTIVE)
[2019-12-15 16:25] LABS: HCV RNA QNT 7.06 Log IU/mL (NOT DETECTED); HCV RNA QUANT RT PCR 11500000 IU/mL (NOT DETECTED)
== END 2019-12-10 14:10 | disposition home or self-care (01) ==
LOC: LAB.S 14:09
PROVIDERS: ATTEND Physician Assistant
DX: Z79.899 Other long term (current) drug therapy (principal); I10 Essential (primary) hypertension; B19.20 Unspecified viral hepatitis C without hepatic coma; F19.11 Other psychoactive substance abuse, in remission
CPT/HCPCS: 36415; 80053; 82150; 83690; 85025; 86803

== ENCOUNTER 2019-12-19 16:48 | Outpatient (CLI) | payer MEDICAID | END 2019-12-19 16:49 | disposition home or self-care (01) | LOC: COV 16:48 | PROVIDERS: ATTEND Family Medicine | DX: R05 Cough (principal); J02.9 Acute pharyngitis, unspecified; Z20.828 Contact with and (suspected) exposure to other viral communicable diseases ==